=== PATIENT | male | born 1980 | race Two or more races ===

== ENCOUNTER 2022-09-09 06:06 | Emergency (ER) | payer BC, OTHER ==
[~2022-09-09] VITALS: Ht 167.6 cm; Wt 83.5 kg
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
--- NOTE | 2022-09-09 06:14 | NUR ---
DR. PAUL DEL RIO AT PT'S BEDSIDE FOR EVAL
--- NOTE | 2022-09-09 06:27 | NUR ---
PT TAKEN TO CT VIA [facility]ON[facility]
--- NOTE | 2022-09-09 06:41 | NUR ---
PT RETURNED TO ER BED [address]
[2022-09-09] MEDS ORDERED: KETOROLAC TROMETHAMINE INJ 30 MG/ML VIAL ONE (06:42)
[2022-09-09] MEDS ORDERED: CYCLOBENZAPRINE 10 MG TABLET ONE (06:43)
[2022-09-09] MEDS: KETOROLAC TROMETHAMINE INJ 60 MG/2 ML VIAL IM ONE (06:52)
[2022-09-09] MEDS: CYCLOBENZAPRINE 10 MG TABLET PO ONE (06:52)
--- NOTE | 2022-09-09 07:32 | NUR ---
REPORT GIVEN TO ARCADIO JARA
[2022-09-09] MEDS ORDERED: NAPR-1164 PO (08:59)
[2022-09-09] MEDS ORDERED: CYCL5TAB PO (08:59)
--- NOTE | 2022-09-09 09:06 | NUR ---
Patient discharged to home in stable condition. Written and verbal after care instructions given. Patient verbalizes understanding of instruction.
[2022-09-09 09:08] VITALS: BP 128/70
== END 2022-09-09 09:08 | disposition home or self-care (01) ==
LOC: ER 06:08
DX: S13.4XXA Sprain of ligaments of cervical spine, initial encounter (principal); J45.909 Unspecified asthma, uncomplicated; Z79.899 Other long term (current) drug therapy; V89.2XXA Person injured in unspecified motor-vehicle accident, traffic, initial encounter; Y93.89 Activity, other specified; Y92.89 Other specified places as the place of occurrence of the external cause; Y99.8 Other external cause status
CPT/HCPCS: 99284; 72125; 96372; J1885